=== PATIENT | male | born 1940 | race Caucasian/White ===

== ENCOUNTER 2017-05-02 13:15 | Inpatient (IN) | payer MEDICARE, OTHER ==
[~2017-05-02] VITALS: Ht 170.2 cm; Wt 101.4 kg
[2017-05-02] MEDS ORDERED: SOD CHLORIDE 0.9% 500 ML IV STA (13:29)
[2017-05-02 14:09] LABS: ABNORMAL IP MESSAGE 1; BASOPHILS % 0.1 % (0.0-2.0); EOSINOPHILS # 0.1 10^3/ul (0.0-0.5); EOSINOPHILS % 1.1 % (0.0-7.0); HEMATOCRIT 38.6 % (42.0-52.0); HEMOGLOBIN 13.7 g/dl (14.0-18.0); LYMPHOCYTES # 0.5 10^3/ul (0.8-2.9); MEAN CORPUSCULAR HEMOGLOBIN 31.5 pg (29.0-33.0); MEAN CORPUSCULAR HGB CONC 35.5 g/dl (32.0-37.0); MEAN CORPUSCULAR VOLUME 88.7 fl (82.0-101.0); MEAN PLATELET VOLUME 11.3 fl (7.4-10.4); MONOCYTE # 0.5 10^3/ul (0.3-0.9); MONOCYTES % 6.2 % (0.0-11.0); NEUTROPHIL # 7.1 10^3/ul (1.6-7.5); NEUTROPHILS % 86.4 % (39.0-77.0); PLATELET COUNT 134 10^3/UL (140-415); POSITIVE DIFF @See below; RED BLOOD COUNT 4.35 10^6/ul (4.70-6.10); RED CELL DISTRIBUTION WIDTH 12.9 % (11.5-14.5); WHITE BLOOD COUNT 8.2 10^3/ul (4.8-10.8)
[2017-05-02 14:13] LABS: ADD UMIC YES; UR ASCORBIC ACID NEGATIVE (NEGATIVE); UR BILIRUBIN (Dip) NEGATIVE (NEGATIVE); UR BLOOD (Dip) 1+ mg/dL (NEGATIVE); UR CLARITY CLEAR (CLEAR); UR COLOR STRAW (YELLOW); UR GLUCOSE (Dip) NEGATIVE (NEGATIVE); UR KETONES (Dip) NEGATIVE (NEGATIVE); UR LEUKOCYTE ESTERASE (Dip) NEGATIVE Leu/ul (NEGATIVE); UR NITRITE (Dip) NEGATIVE (NEGATIVE); UR RBC 1 /HPF (0-5); UR SPECIFIC GRAVITY (Dip) 1.009 (1.003-1.030); UR TOTAL PROTEIN (Dip) NEGATIVE (NEGATIVE); UR UROBILINOGEN (Dip) NEGATIVE (NEGATIVE)
[2017-05-02 14:25] LABS: CALCIUM 9.4 mg/dl (8.4-10.2); CREATININE 1.24 mg/dl (0.61-1.24); POTASSIUM 3.6 mmol/L (3.5-5.1)
--- NOTE | 2017-05-02 14:30 | RADRPT ---
PROCEDURE: Chest x-ray CLINICAL INDICATION: Chest pain TECHNIQUE: Chest single view COMPARISON: None FINDINGS: The heart is normal in size. The pulmonary vessels are normal in caliber. There are low lung volume s with bibasilar atelectasis. The costophrenic angles are sharp. The visualized bony thorax is unr emarkable. Healed left clavicle fracture is noted IMPRESSION: No acute cardiopulmonary disease. Low lung volumes with bibasilar atelectasis RPTAT: HH .Flo Cruz MD, Date Time Electronically viewed and signed by .Flo Cruz MD, on 05/02/2017 14:30 .W/
[2017-05-02] MEDS ORDERED: NEPA1.7D LEFT EYE (14:32)
[2017-05-02] MEDS ORDERED: DIFL5DRO LEFT EYE (14:33)
[2017-05-02] MEDS ORDERED: RANO500T2 PO (14:35)
[2017-05-02] MEDS ORDERED: LANT3I SC ×2 (14:35)
[2017-05-02 14:37] LABS: TROPONIN-I 0.02 ng/ml (0.00-0.12)
[2017-05-02] MEDS ORDERED: PREG50CA PO (14:37)
[2017-05-02] MEDS ORDERED: TRAV2.5D BOTH EYES (14:38)
[2017-05-02] MEDS ORDERED: METO-335 PO (14:45)
[2017-05-02] MEDS ORDERED: ESOM40CA PO (14:46)
[2017-05-02] MEDS ORDERED: NOVO3I SC (14:47)
[2017-05-02] MEDS ORDERED: LIDO700A10 TP (14:49)
[2017-05-02] MEDS ORDERED: OXYB10TA PO (14:50)
[2017-05-02] MEDS ORDERED: DORZ10DR22 BOTH EYES (14:51)
[2017-05-02] MEDS ORDERED: CLOP75TA27 PO (14:51)
[2017-05-02] MEDS ORDERED: LISI20TA11 PO (14:51)
[2017-05-02] MEDS ORDERED: DOCU100T PO (14:52)
[2017-05-02] MEDS ORDERED: FURO40TA4 PO (14:53)
[2017-05-02] MEDS ORDERED: PENT400T2 PO (14:53)
[2017-05-02] MEDS ORDERED: ISOS60TA PO (14:54)
[2017-05-02] MEDS ORDERED: ASPI-664 PO (14:54)
[2017-05-02] MEDS ORDERED: POTA10TA37 PO (14:55)
[2017-05-02] MEDS ORDERED: PANT40TA3 PO (14:55)
[2017-05-02] MEDS ORDERED: TAMS-14 PO (14:55)
[2017-05-02] MEDS ORDERED: ALBU18HF INHALATION (14:56)
[2017-05-02] MEDS ORDERED: ATOR20TA38 PO (14:56)
[2017-05-02] MEDS ORDERED: IODIXANOL LOCM 100 ML BTL ONE (16:10)
[2017-05-02] MEDS ORDERED: SOD CHLORIDE 0.9% 100 ML ONE (16:10)
[2017-05-02] MEDS ORDERED: IODIXANOL LOCM 50 ML BTL ONE (16:10)
--- NOTE | 2017-05-02 16:44 | RADRPT ---
PROCEDURE: CTA Chest and pulmonary angiogram. CLINICAL INDICATION: Chest pain and shortness of breath. TECHNIQUE: CT scan of the chest and CT pulmonary angiogram was performed on a multidetector high-r [employer]olution CT scanner. High-resolution thin slice coronal and sagittal imaging was obtained from the axial source images. 3-D volumetric rendered post processing was performed as well. The patient w as examined following the uncomplicated intravenous administration of 120 cc of Visipaque 320. The i mages were reviewed on a PACS workstation. The total exam CTDI equals 35.21, and 19.93 and the total exam DLP equals 724.27 mGy-cm. One or more of the following dose reduction techniques were used: Automated exposure control. Adjustment of the mA and/or kV according to patient size. Use of iterative reconstruction technique. COMPARISON: No prior studies are available for comparison. FINDINGS: CT chest: Small areas of peripheral consolidations in the posterior left lingular segment and left lung base l aterally with surrounding infiltrates are present. There is diffuse bronchial wall thickening with m ucous plugging in the lung bases left greater than right. There is azygos lobe variation. The mediastinum is unremarkable without evidence for mass or lymphadenopathy. The vascular structur es of the mediastinum are normal in course and caliber. The heart size is mildly enlarged without p ericardial thickening or effusion. Dense coronary artery calcifications/stents are present. The axil rosa, subpectoral, and supraclavicular regions are unremarkable. Imaging obtained through the upper abdomen is remarkable for mild splenomegaly. The adrenal glands are symmetrically normal. The surrounding chest wall is unremarkable. 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 The osseous structures are remarkable for degenerative spondylosis of the spine. CT pulmonary angiogram: No thrombus, clot, filling defect, or pulmonary web is identified. The pulmonary arteries are ivis l in caliber and morphology. No filling defect is present to suggest pulmonary embolism. There is no evidence for pulmonary arterial hypertension. IMPRESSION: 1. No evidence for pulmonary embolism. 2. Bronchopneumonia more evident in the left lower lobe. 3. Mild cardiomegaly. Dense coronary artery calcifications/stents. 4. Mild splenomegaly. RPTAT: BB .Marv Avila MD, MD Date Time Electronically viewed and signed by .Marv Avila MD, MD on 05/02/2017 16:44 .O/
[2017-05-02] MEDS ORDERED: VANCOMYCIN 1 GM (PMX) 250 ML IVPB STA (16:46)
[2017-05-02] MEDS ORDERED: CEFEPIME 2GM/50 ML (PMX) 50 ML IVPB STA (16:46)
[2017-05-02] MEDS ORDERED: ACETAMINOPHEN 500 MG TAB PO STA (18:07)
--- NOTE | 2017-05-02 18:11 | ERD ---
ER Documentation Chief Complaint Chief Complaint referred by PMD r/o PNA, CHF HPI This is a 76-year-old male presents to the emergency room for evaluation of chest pain, shortness of breath. This patient was seen by his primary care physician Dr. Johnston who referred the patient to the emergency room for evaluation and rule out of pneumonia. This patient does say he has a history of hypertension, high cholesterol, and stents placed in his heart. The patient came to the ER today for evaluation of his symptoms. He denies any fevers or chills and does state he has a cough. ROS All systems reviewed and are negative except as per history of present illness. Medications Home Meds Reported Medications Albuterol Sulfate* (Ventolin HFA*) 18 Gm Hfa.aer.ad, 2 PUFF INHALATION Q6H, #1 INHALER 05/02/17 Atorvastatin Calcium* (Atorvastatin Calcium*) 20 Mg Tablet, 20 MG PO QHS, #30 TAB 05/02/17 Tamsulosin Hcl* (Flomax*) 0.4 Mg Cap.er.24h, 0.4 MG PO DAILY, CAP 05/02/17 Pantoprazole* (Protonix*) 40 Mg Tablet.dr, 40 MG PO DAILY, TAB 05/02/17 Potassium Chloride* (K-Dur*) 10 Meq Tab.prt.sr, 10 MEQ PO DAILY, TAB 05/02/17 Isosorbide Mononitrate* (Isosorbide Mononitrate*) 60 Mg Tab.er.24h, 60 MG PO BID , TAB 05/02/17 Aspirin (Low Dose Aspirin) 81 Mg Tablet.dr, 81 MG PO DAILY, #30 TAB 05/02/17 Furosemide* (Furosemide*) 40 Mg Tablet, 40 MG PO DAILY, TAB 05/02/17 Pentoxifylline* (Pentoxifylline*) 400 Mg Tablet.sa, 400 MG PO BID, TAB 05/02/17 Docusate Sodium* (Dok*) 100 Mg Tablet, 200 MG PO BID, #120 CAP 05/02/17 Lisinopril* (Lisinopril*) 20 Mg Tablet, 20 MG PO DAILY, #30 TAB 05/02/17 Clopidogrel Bisulfate (Clopidogrel) 75 Mg Tablet, 75 MG PO DAILY, #30 TAB 05/02/17 Dorzolamide-Timolol* (Cosopt*) 2%-0.5% - 10 Ml Soln, 1 DROP BOTH EYES BID, BOTTLE 05/02/17 Oxybutynin Chloride (Oxybutynin Chloride ER) 10 Mg Tab.er.24, 10 MG PO QAM, TAB 05/02/17 Lidocaine (Lidoderm) 1 Each Adh..patch, 3 EACH TP Q12 APPLY 3 PATCHES TO AFFECTED AREAS DIRECTED AND LEAVE ON 12 HOURS THEN OFF FOR 12 HOURS 05/02/17 Insulin Aspart* (Novolog Insulin Pen*) 100 Unit/Ml Soln, 8 UNIT SC WITH MEALS, EA 05/02/17 Esomeprazole Mag Trihydrate (Nexium) 40 Mg Capsule.dr, 40 MG PO DAILY, #30 CAP 05/02/17 Metoprolol Succinate* (Toprol XL*) 25 Mg Tab.sr.24h, 12.5 MG PO BID, #30 TAB 05/02/17 Travoprost* (Travatan Z*) 2.5 Ml Drops, 1 DROP BOTH EYES HS, #1 BOTTLE 05/02/17 Pregabalin* (Lyrica*) 50 Mg Capsule, 50 MG PO TID, CAP 05/02/17 Ranolazine* (Ranexa*) 500 Mg Tab.sr.12h, 500 MG PO Q12, TAB 05/02/17 Insulin Glargine* (Lantus*) 100 Unit/Ml Soln, 20 UNIT SC QPM, #1 VIAL 05/02/17 Insulin Glargine* (Lantus*) 100 Unit/Ml Soln, 40 UNIT SC QAM, #1 VIAL 05/02/17 Difluprednate (Durezol) 5 Ml Drops, 1 DRP LEFT EYE BID, BOTTLE 05/02/17 Nepafenac (ILEVRO) 1.7 Ml Drops.susp, 1.7 ML LEFT EYE QAM 05/02/17 Allergies Allergies: Coded Allergies: No Known Allergy (Unverified , 05/02/17) PMhx/Soc History of Surgery: Yes (cardiac stents x3) Hx Cardiac Disorders: Yes (HTN, cholesterol, stents) Hx Psychiatric Problems: No Hx Miscellaneous Medical Probl: No Hx Alcohol Use: No Hx Substance Use: No Hx Tobacco Use: No Smoking Status: Never smoker Physical Exam Vitals Vital Signs Date Time Temp Pulse Resp B/P Pulse Ox O2 Delivery O2 Flow Rate FiO2 05/02/17 15:10 94 22 140/53 95 Room Air 05/02/17 14:47 98.5 96 21 146/80 97 Physical Exam INITIAL VITAL SIGNS: Reviewed by me GENERAL: The patient is well developed and appropriate for usual state of health in no apparent distress HEENT: Pupils equal, round, and reactive to light. EOMI. There is no scleral icterus. NECK: C-spine is soft and supple, there is no meningismus. There is no cervical lymphadenopathy. LUNGS: Clear to auscultation bilaterally. There are no rales, wheezes or rhonchi. HEART: Regular rate and rhythm, no murmurs, clicks, rubs or gallops. ABDOMEN: Soft, non-tender, non-distended. There are bowel sounds in all four quadrants. No rebound or guarding. EXTREMITIES: There is no peripheral cyanosis or edema. No focal swelling or erythema. NEUROLOGICAL: The patient moves all four extremities with 5/5 strength. Cranial nerves II - XII are intact. Normal gait. Alert and oriented SKIN: There is no apparent rash or petechiae. HEME/LYMPHATIC: There is no evidence of excessive bruising or lymphedema. PSYCHIATRIC: The patient does not appear anxious or depressed. Result Diagram: 05/02/17 1335 05/02/17 1335 Results 24 hrs Laboratory Tests Test 05/02/17 13:35 05/02/17 13:50 05/02/17 17:10 White Blood Count 8.210^3/ul Red Blood Count 4.3510^6/ul Hemoglobin 13.7g/dl Hematocrit 38.6% Mean Corpuscular Volume 88.7fl Mean Corpuscular Hemoglobin 31.5pg Mean Corpuscular Hemoglobin Concent 35.5g/dl Red Cell Distribution Width 12.9% Platelet Count 83917^3/UL Mean Platelet Volume 11.3fl Neutrophils % 86.4% Lymphocytes % 6.0% Monocytes % 6.2% Eosinophils % 1.1% Basophils % 0.1% Nucleated Red Blood Cells % 0.0/100WBC Neutrophils # 7.110^3/ul Lymphocytes # 0.510^3/ul Monocytes # 0.510^3/ul Eosinophils # 0.110^3/ul Basophils # 0.010^3/ul Nucleated Red Blood Cells # 0.010^3/ul Sodium Level 139mmol/L Potassium Level 3.6mmol/L Chloride Level 99mmol/L Carbon Dioxide Level 26mmol/L Anion Gap 18 Blood Urea Nitrogen 15mg/dl Creatinine 1.24mg/dl Glucose Level 201mg/dl Calcium Level 9.4mg/dl Troponin I 0.020ng/ml B-Type Natriuretic Peptide 297PG/ML Urine Color STRAW Urine Clarity CLEAR Urine pH 5.0 Urine Specific [place] 1.009 Urine Ketones NEGATIVEmg/dL Urine Nitrite NEGATIVEmg/dL Urine Bilirubin NEGATIVEmg/dL Urine Urobilinogen NEGATIVEmg/dL Urine Leukocyte Esterase NEGATIVELeu/ul Urine Microscopic RBC 1/HPF Urine Microscopic WBC 0/HPF Urine Hemoglobin 1+mg/dL Urine Glucose NEGATIVEmg/dL Urine Total Protein NEGATIVEmg/dl Lactic Acid Level 1.6mmol/L Current Medications Medications (Trade) Dose Ordered Sig/Kd Route PRN Reason Start Time Stop Time Status Last Admin Dose Admin Sodium Chloride (NS) 500 ml @ 500 mls/hr Q1H STAT IV 05/02/17 13:29 05/02/17 14:28 DC 05/02/17 14:00 IV Flush 10 ml 10 ml STK-MED ONCE .ROUTE 05/02/17 16:09 05/02/17 16:10 DC 05/02/17 16:09 Sodium Chloride (NS) 100 ml @ ud STK-MED ONCE .ROUTE 05/02/17 16:10 05/02/17 16:11 DC 05/02/17 16:10 Iodixanol (Visipaque Locm) 100 ml STK-MED ONCE .ROUTE 05/02/17 16:10 05/02/17 16:11 DC 05/02/17 16:10 Iodixanol 50 ml 50 ml STK-MED ONCE .ROUTE 05/02/17 16:10 05/02/17 16:11 DC 05/02/17 16:10 Vancomycin HCl 250 ml @ 125 mls/hr ONCE STAT IVPB 05/02/17 16:46 05/02/17 18:45 Cefepime HCl (Maxipime 2gm/50 ml (Pmx)) 50 ml @ 100 mls/hr ONCE STAT IVPB 05/02/17 16:46 05/02/17 17:15 DC 05/02/17 17:52 Acetaminophen (Tylenol Tab) 1,000 mg ONCE STAT PO 05/02/17 18:07 05/02/17 18:08 DC Procedures/MDM Chest X-ray 1V Interpreted by me: Soft Tissue: No acute abnormalities Bones: No acute abnormalities Mediastinum/Cardiac Silhouette/Lungs: [No acute abnormalities] EKG: Rate/Rhythm: Biventricular block QRS, ST, T-waves: [No changes consistent w/ acute ischemia] Impression: Biventricular block This 76-year-old male presents to the ER for evaluation of multiple complaints including chest pain and mild shortness of breath. When I evaluated this patient he was tachycardic. The patient does have a history of stents placed. I did obtain lab work on this patient. His first troponin is negative. Chest x -ray is clear, CT of the chest does not reveal any pulmonary embolus. We were trying to get a hold of this patient's insurance for admission to determine which physician will be admitting this patient. After 90 minutes of waiting he did not hear back from the insurance company and I spoken to her panel physician , Dr. arias who accepts the patient at this time. Patient will be placed on the telemetry floor. Departure Diagnosis: Primary Impression: Chest pain Additional Impression: Shortness of breath Condition: Stable PEARLJOSH LOVEJEN DOTY May 02, 2017 18:11
[2017-05-02] MEDS ORDERED: ONDANSETRON 4 MG INJ IV PRN (18:30)
[2017-05-02] MEDS ORDERED: ACETAMINOPHEN 325 MG TAB PO PRN ×2 (18:30→19:00)
[2017-05-02 18:33] VITALS: TEMP 101
[2017-05-02] MEDS ORDERED: MAGNESIUM HYDROXIDE 30ML CUP PO PRN (19:00)
[2017-05-02] MEDS ORDERED: BISACODYL (EC) 5 MG TAB PO PRN (19:00)
[2017-05-02] MEDS ORDERED: NACL 0.9% 3 ML SYG IV SCH (19:00)
[2017-05-02] MEDS ORDERED: AZITHROMYCIN 250 MG TAB PO SCH (19:00)
[2017-05-02] MEDS ORDERED: ALBUTEROL 18 GM INHALER INH PRN (19:00)
[2017-05-02] MEDS ORDERED: HYDROCODONE/APAP (5/325) TAB PO PRN (19:00)
[2017-05-02] MEDS ORDERED: DOCUSATE SODIUM 100 MG CAP PO PRN (19:00)
--- NOTE | 2017-05-02 19:07 | HP ---
Date/Time of Note Date/Time of Note DATE: 05/02/17 TIME: 19:02 Assessment/Plan VTE Prophylaxis VTE Prophylaxis Intervention: SCD's Lines/Catheters IV Catheter Type (from Nrsg): Peripheral IV Assessment/Plan Assessment/Plan 76 yo M with pmhx CAD sp stent, DM2, HTN, HL, chronic pain, PAD presents with SOB in setting of LLL infiltrate, concerning for CAP. Given cardiac hx, ER wanted to r/o ACS as well. PLAN r/o ACS with serial trops cont home BP meds, statin, antiplatelet therapy CAP treatment with azithro/rocephin nebs PRN wheezing if wheezing still present in AM, consider steroid burst cont home meds-->for DM2 check a1c as well HPI/ROS Admit Date/Time Admit Date/Time Hx of Present Illness cc sob X 1 DAY hpi: 76 yo M with pmhx CAD sp stenting, DM2, asthma, PVD, chronic pain presents with 1 day SOB, cough, and fevers. Pt seen by his PCP who sent him to the ER to eval for pna. No leg swelling. No rashes. +sore throat PMhx as above Soc Hx: lives in the community ROS: 10p ROS neg except as per HPI PMH/Family/Social Social History Smoking Status: Never smoker Exam/Review of Systems Vital Signs Vitals Vital Signs Date Time Temp Pulse Resp B/P Pulse Ox O2 Delivery O2 Flow Rate FiO2 05/02/17 18:33 101.0 113 16 158/74 95 Room Air Exam Exam nad, laying in bed EOMI MMM +wheezing in all lung chamberlain no mrg abd obese no rashes no edema moves exts freely CTA with LLL infiltrate on personal review. WBCs nl Labs Result Diagram: 05/02/17 1335 05/02/17 1335 Medications Medications Current Medications Albuterol (Proventil (O.r. Use Only)) 2 puff Q6H PRN INH SHORTNESS OF BREATH; Start 05/02/17 at 19:00; Status UNV Aspirin (Halfprin) 81 mg DAILY PO ; Start 05/03/17 at 09:00; Status UNV Atorvastatin Calcium (Lipitor) 20 mg QHS PO ; Start 05/02/17 at 21:00; Status UNV Clopidogrel Bisulfate (plaVIX) 75 mg DAILY PO ; Start 05/03/17 at 09:00; Status UNV Docusate Sodium (Colace) 200 mg BID PO ; Start 05/02/17 at 21:00; Status UNV Dorzolamide/ Timolol (Cosopt) 1 drop BID BOTH EYES ; Start 05/02/17 at 21:00; Status UNV Furosemide (Lasix) 40 mg DAILY PO ; Start 05/03/17 at 09:00; Status UNV Insulin Glargine (Lantus) 20 unit QPM SC ; Start 05/02/17 at 21:00; Status UNV Insulin Glargine (Lantus) 40 unit QAM SC ; Start 05/03/17 at 09:00; Status UNV Isosorbide Mononitrate (Imdur) 60 mg BID PO ; Start 05/02/17 at 21:00; Status UNV Lidocaine (Lidoderm) 1 patch Q12 TD ; Start 05/02/17 at 21:00; Status UNV Lisinopril (Zestril) 20 mg DAILY PO ; Start 05/03/17 at 09:00; Status UNV Metoprolol Succinate (Toprol Xl) 12.5 mg BID PO ; Start 05/02/17 at 21:00; Status UNV Pantoprazole (Protonix Tab) 40 mg DAILY PO ; Start 05/03/17 at 09:00; Status UNV Pentoxifylline (Trental) 400 mg BID PO ; Start 05/02/17 at 21:00; Status UNV Potassium Chloride (Klor-Con 10) 10 meq DAILY PO ; Start 05/03/17 at 09:00; Status UNV Pregabalin (Lyrica) 50 mg TID PO ; Start 05/02/17 at 21:00; Status UNV Ranolazine (Ranexa) 500 mg Q12 PO ; Start 05/02/17 at 21:00; Status UNV Tamsulosin HCl (Flomax) 0.4 mg DAILY PO ; Start 05/03/17 at 09:00; Status UNV Travoprost (Travatan) 1 drop HS BOTH EYES ; Start 05/02/17 at 21:00; Status UNV Miscellaneous Information 1 drp BID LEFT EYE ; Start 05/02/17 at 21:00; Status UNV Miscellaneous Information 40 mg DAILY PO ; Start 05/03/17 at 09:00; Status UNV Miscellaneous Information 1.7 ml QAM LEFT EYE ; Start 05/03/17 at 09:00; Status UNV Miscellaneous Information 10 mg QAM PO ; Start 05/03/17 at 09:00; Status UNV Azithromycin 500 mg 500 mg ONCE PO ; Start 05/02/17 at 19:00; Status UNV Ceftazidime (Fortaz 1gm/50 ml (Pmx)) 50 ml @ 100 mls/hr DAILY IVPB ; Start at 09:00; Status UNV Azithromycin (Zithromax) 250 mg DAILY PO ; Start 05/03/17 at 09:00; Stop 05/09 at 08:59; Status UNV Acetaminophen (Tylenol Tab) 650 mg Q6H PRN PO PAIN LEVEL 1-3 OR FEVER; Start 05/02/17 at 19:00; Status UNV Acetaminophen/ Hydrocodone Bitart ([place] (5/325)) 1 tab Q6H PRN PO PAIN LEVEL 4 -6; Start 05/02/17 at 19:00; Status UNV Docusate Sodium (Colace) 100 mg Q12H PRN PO CONSTIPATION; Start 05/02/17 at 19 :00; Status UNV Magnesium Hydroxide (Milk Of Mag) 30 ml DAILY PRN PO CONSTIPATION; Start 05/02 at 19:00; Status UNV Bisacodyl (Dulcolax) 5 mg DAILY PRN PO CONSTIPATION; Start 05/02/17 at 19:00; Status UNV Enoxaparin Sodium (Lovenox) 40 mg DAILY SC ; Start 05/03/17 at 09:00; Status UNV TACO IQBAL MD May 02, 2017 19:07
[2017-05-02] MEDS ORDERED: CEFTRIAXONE 1 GM/50 ML (PMX) 50 ML IVPB SCH (19:30)
[2017-05-02] MEDS ORDERED: ALBUTEROL/IPRATROPIUM (NEB) 3 ML AMP HHN PRN (19:30)
[2017-05-02] MEDS ORDERED: GLUCOSE GEL 15 GRAM TUBE PO PRN ×2 (20:00)
[2017-05-02] MEDS ORDERED: GLUCOSE GEL 15 GRAM TUBE BUCCAL PRN (20:00)
[2017-05-02] MEDS ORDERED: DEXTROSE 50% 50 ML SYRINGE IV PRN ×2 (20:00)
[2017-05-02] MEDS ORDERED: GLUCAGON 1 MG INJ IM PRN (20:00)
[2017-05-02 20:18] VITALS: PULSE 90
[2017-05-02 20:26] VITALS: BP 158/75; RESP 18
[2017-05-02 21:00] VITALS: Ht 170.2 cm; Wt 101.4 kg
[2017-05-02] MEDS ORDERED: ATORVASTATIN 20 MG TAB PO SCH (21:00)
[2017-05-02] MEDS ORDERED: INSULIN GLARGINE [LANtus] 3 ML PEN SC SCH (21:00)
[2017-05-02] MEDS ORDERED: DIFLUPREDNATE XX SCH (21:00)
[2017-05-02] MEDS ORDERED: TRAVOPROST 0.004% 2.5 ML OPH BOTH EYES SCH (21:00)
[2017-05-02] MEDS ORDERED: LIDOCAINE 5% PATCH TD SCH (21:00)
[2017-05-02 21:22] LABS: TROPONIN-I 0.067 ng/ml (0.00-0.12)
[2017-05-02] MEDS: ISOSORBIDE MONONITRATE(SR)60 MG TAB PO SCH (22:00)
[2017-05-02] MEDS: DOCUSATE SODIUM 100 MG CAP PO SCH (22:00)
[2017-05-02 22:01] LABS: CK-MB 1.28 ng/ml (0.0-2.4)
[2017-05-02] MEDS: METOPROLOL (XL) 25 MG TAB PO SCH (22:01)
[2017-05-02] MEDS: INSULIN ASPART [NOVOLOG] 3 ML PEN SC SCH (22:03)
[2017-05-02] MEDS ORDERED: LATANOPROST 0.005% 2.5 ML OPH BOTH EYES SCH (23:08)
[2017-05-02] MEDS: DORZOLAMIDE/TIMOLOL 10 ML OPH BOTH EYES SCH (23:39)
[2017-05-02] MEDS: PENTOXIFYLLINE (SR) 400 MG TAB PO SCH (23:39)
[2017-05-02] MEDS: RANOLAZINE (SR) 500 MG TAB PO SCH (23:39)
[2017-05-03] VITALS (8 sets, daily range): BP systolic 127–152; BP diastolic 60–70; PULSE 62–95; RESP 17–20
[2017-05-03] MEDS: PREGABALIN 50 MG CAP PO SCH ×3 (00:12→13:00)
[2017-05-03] MEDS ORDERED: ACCU-CHEK XX SCH (02:00)
[2017-05-03 02:06] LABS: TROPONIN-I 0.069 ng/ml (0.00-0.12)
[2017-05-03 02:09] LABS: CK-MB 2.04 ng/ml (0.0-2.4)
[2017-05-03] MEDS ORDERED: PANTOPRAZOLE (EC) 40 MG TAB PO SCH (06:00)
[2017-05-03] MEDS: INSULIN ASPART [NOVOLOG] 3 ML PEN SC SCH ×4 (08:00→12:00)
[2017-05-03 08:19] LABS: BASOPHILS % 0.2 % (0.0-2.0); EOSINOPHILS # 0.1 10^3/ul (0.0-0.5); EOSINOPHILS % 2.1 % (0.0-7.0); HEMATOCRIT 35.4 % (42.0-52.0); HEMOGLOBIN 12.2 g/dl (14.0-18.0); LYMPHOCYTES # 0.7 10^3/ul (0.8-2.9); MEAN CORPUSCULAR HGB CONC 34.5 g/dl (32.0-37.0); MEAN CORPUSCULAR VOLUME 89.8 fl (82.0-101.0); MEAN PLATELET VOLUME 11.4 fl (7.4-10.4); MONOCYTE # 0.7 10^3/ul (0.3-0.9); NEUTROPHIL # 3.6 10^3/ul (1.6-7.5); NEUTROPHILS % 69.5 % (39.0-77.0); PLATELET COUNT 125 10^3/UL (140-415); RED BLOOD COUNT 3.94 10^6/ul (4.70-6.10); RED CELL DISTRIBUTION WIDTH 12.9 % (11.5-14.5); WHITE BLOOD COUNT 5.2 10^3/ul (4.8-10.8)
[2017-05-03] MEDS: RANOLAZINE (SR) 500 MG TAB PO SCH (08:27)
[2017-05-03] MEDS: ISOSORBIDE MONONITRATE(SR)60 MG TAB PO SCH (08:28)
[2017-05-03] MEDS: PENTOXIFYLLINE (SR) 400 MG TAB PO SCH (08:28)
[2017-05-03] MEDS: METOPROLOL (XL) 25 MG TAB PO SCH (08:29)
[2017-05-03] MEDS: DORZOLAMIDE/TIMOLOL 10 ML OPH BOTH EYES SCH (08:30)
[2017-05-03 08:34] LABS: CHOL/HDL RATIO 4.5 RATIO; CREATININE 1.25 mg/dl (0.61-1.24); POTASSIUM 4.3 mmol/L (3.5-5.1)
[2017-05-03] MEDS: DOCUSATE SODIUM 100 MG CAP PO SCH (08:40)
[2017-05-03] MEDS ORDERED: ENOXAPARIN 40 MG/0.4 ML SYG SC SCH (09:00)
[2017-05-03] MEDS ORDERED: OXYBUTYNIN (XL) 5 MG TAB PO SCH (09:00)
[2017-05-03] MEDS ORDERED: FUROSEMIDE 40 MG TAB PO SCH (09:00)
[2017-05-03] MEDS ORDERED: CLOPIDOGREL 75 MG TAB PO SCH (09:00)
[2017-05-03] MEDS ORDERED: AZITHROMYCIN 250 MG TAB PO SCH (09:00)
[2017-05-03] MEDS ORDERED: POTASSIUM CHLORIDE (SR) 10 MEQ TAB PO SCH (09:00)
[2017-05-03] MEDS ORDERED: NEPAFENAC XX SCH (09:00)
[2017-05-03] MEDS ORDERED: ASPIRIN (EC) 81 MG TAB PO SCH (09:00)
[2017-05-03] MEDS ORDERED: INSULIN GLARGINE [LANtus] 3 ML PEN SC SCH (09:00)
[2017-05-03] MEDS ORDERED: LISINOPRIL 20 MG TAB PO SCH (09:00)
[2017-05-03] MEDS ORDERED: NON-FORMULARY/PATIENT OWN MED (Esomeprazole Mag Trihydrate (Nexium) 40 MG) PO SCH (09:00)
[2017-05-03] MEDS ORDERED: CEFTAZIDIME 1GM/50 ML (PMX) 50 ML IVPB SCH (09:00)
[2017-05-03] MEDS ORDERED: LEVO750T8 PO (12:45)
--- NOTE | 2017-05-03 12:46 | PDOCDIS ---
Discharge Instructions CONDITION Patient Condition: Stable HOME CARE INSTRUCTIONS: Special Diet: carb controlled FOLLOW UP/APPOINTMENTS Follow-up Plan Follow up with your regular doctor within 7 days TACO IQBAL MD May 03, 2017 12:46
--- NOTE | 2017-05-03 12:49 | DS ---
Date/Time of Note Date/Time of Note DATE: 05/03/17 TIME: 12:46 Discharge Summary Admission/Discharge Info Admit Date/Time May 02, 2017 at 18:09 Discharge Date/Time Discharge Diagnosis community acquired pneumonia Procedures . CTA chest IMPRESSION: 1. No evidence for pulmonary embolism. 2. Bronchopneumonia more evident in the left lower lobe. 3. Mild cardiomegaly. Dense coronary artery calcifications/stents. 4. Mild splenomegaly. troponins neg x 3 Hx of Present Illness cc sob X 1 DAY hpi: 76 yo M with pmhx CAD sp stenting, DM2, asthma, PVD, chronic pain presents with 1 day SOB, cough, and fevers. Pt seen by his PCP who sent him to the ER to eval for pna. No leg swelling. No rashes. +sore throat PMhx as above Soc Hx: lives in the community ROS: 10p ROS neg except as per HPI Hospital Course Given lung imaging with evidence of LLL infiltrate concern for PNA/CAP. Pt started on antibiotics and felt better by the next morning and requested discharge. Pt to complete 6 more days of antimicrobials for his pneumonia. No changes to home meds besides short course of abx. Serial troponins negative. Home Meds Reported Medications Albuterol Sulfate* (Ventolin HFA*) 18 Gm Hfa.aer.ad, 2 PUFF INHALATION Q6H, #1 INHALER 05/02/17 Atorvastatin Calcium* (Atorvastatin Calcium*) 20 Mg Tablet, 20 MG PO QHS, #30 TAB 05/02/17 Tamsulosin Hcl* (Flomax*) 0.4 Mg Cap.er.24h, 0.4 MG PO DAILY, CAP 05/02/17 Pantoprazole* (Protonix*) 40 Mg Tablet.dr, 40 MG PO DAILY, TAB 05/02/17 Potassium Chloride* (K-Dur*) 10 Meq Tab.prt.sr, 10 MEQ PO DAILY, TAB 05/02/17 Isosorbide Mononitrate* (Isosorbide Mononitrate*) 60 Mg Tab.er.24h, 60 MG PO BID , TAB 05/02/17 Aspirin (Low Dose Aspirin) 81 Mg Tablet.dr, 81 MG PO DAILY, #30 TAB 05/02/17 Furosemide* (Furosemide*) 40 Mg Tablet, 40 MG PO DAILY, TAB 05/02/17 Pentoxifylline* (Pentoxifylline*) 400 Mg Tablet.sa, 400 MG PO BID, TAB 05/02/17 Docusate Sodium* (Dok*) 100 Mg Tablet, 200 MG PO BID, #120 CAP 05/02/17 Lisinopril* (Lisinopril*) 20 Mg Tablet, 20 MG PO DAILY, #30 TAB 05/02/17 Clopidogrel Bisulfate (Clopidogrel) 75 Mg Tablet, 75 MG PO DAILY, #30 TAB 05/02/17 Dorzolamide-Timolol* (Cosopt*) 2%-0.5% - 10 Ml Soln, 1 DROP BOTH EYES BID, BOTTLE 05/02/17 Oxybutynin Chloride (Oxybutynin Chloride ER) 10 Mg Tab.er.24, 10 MG PO QAM, TAB 05/02/17 Lidocaine (Lidoderm) 1 Each Adh..patch, 3 EACH TP Q12 APPLY 3 PATCHES TO AFFECTED AREAS DIRECTED AND LEAVE ON 12 HOURS THEN OFF FOR 12 HOURS 05/02/17 Insulin Aspart* (Novolog Insulin Pen*) 100 Unit/Ml Soln, 8 UNIT SC WITH MEALS, EA 05/02/17 Esomeprazole Mag Trihydrate (Nexium) 40 Mg Capsule.dr, 40 MG PO DAILY, #30 CAP 05/02/17 Metoprolol Succinate* (Toprol XL*) 25 Mg Tab.sr.24h, 12.5 MG PO BID, #30 TAB 05/02/17 Travoprost* (Travatan Z*) 2.5 Ml Drops, 1 DROP BOTH EYES HS, #1 BOTTLE 05/02/17 Pregabalin* (Lyrica*) 50 Mg Capsule, 50 MG PO TID, CAP 05/02/17 Ranolazine* (Ranexa*) 500 Mg Tab.sr.12h, 500 MG PO Q12, TAB 05/02/17 Insulin Glargine* (Lantus*) 100 Unit/Ml Soln, 20 UNIT SC QPM, #1 VIAL 05/02/17 Insulin Glargine* (Lantus*) 100 Unit/Ml Soln, 40 UNIT SC QAM, #1 VIAL 05/02/17 Difluprednate (Durezol) 5 Ml Drops, 1 DRP LEFT EYE BID, BOTTLE 05/02/17 Nepafenac (ILEVRO) 1.7 Ml Drops.susp, 1.7 ML LEFT EYE QAM 05/02/17 Follow-up Plan Follow up with your regular doctor within 7 days Primary Care Provider Bobby Fitzgerald MD Time spent on discharge: > 30 minutes Pending Labs Laboratory Tests Test 05/02/17 13:35 05/02/17 13:50 05/02/17 17:10 05/02/17 20:24 White Blood Count 8.210^3/ul (4.8-10.8) Red Blood Count 4.3510^6/ul (4.70-6.10) Hemoglobin 13.7g/dl (14.0-18.0) Hematocrit 38.6% (42.0-52.0) Mean Corpuscular Volume 88.7fl (82.0-101.0) Mean Corpuscular Hemoglobin 31.5pg (29.0-33.0) Mean Corpuscular Hemoglobin Concent 35.5g/dl (32.0-37.0) Red Cell Distribution Width 12.9% (11.5-14.5) Platelet Count 14298^3/UL (140-415) Mean Platelet Volume 11.3fl (7.4-10.4) Neutrophils % 86.4% (39.0-77.0) Lymphocytes % 6.0% (15.0-51.0) Monocytes % 6.2% (0.0-11.0) Eosinophils % 1.1% (0.0-7.0) Basophils % 0.1% (0.0-2.0) Nucleated Red Blood Cells % 0.0/100WBC (0.0-0.0) Neutrophils # 7.110^3/ul (1.6-7.5) Lymphocytes # 0.510^3/ul (0.8-2.9) Monocytes # 0.510^3/ul (0.3-0.9) Eosinophils # 0.110^3/ul (0.0-0.5) Basophils # 0.010^3/ul (0.0-0.1) Nucleated Red Blood Cells # 0.010^3/ul (0.0-0.0) Sodium Level 139mmol/L (135-144) Potassium Level 3.6mmol/L (3.5-5.1) Chloride Level 99mmol/L (97-110) Carbon Dioxide Level 26mmol/L (21-31) Anion Gap 18 (8-16) Blood Urea Nitrogen 15mg/dl (7-20) Creatinine 1.24mg/dl (0.61-1.24) Glucose Level 201mg/dl (70-220) Calcium Level 9.4mg/dl (8.4-10.2) Troponin I 0.020ng/ml (0.00-0.12) 0.067ng/ml (0.00-0.12) B-Type Natriuretic Peptide 297PG/ML (0-450) Urine Color STRAW (YELLOW) Urine Clarity CLEAR (CLEAR) Urine pH 5.0 (5.0-9.0) Urine Specific [place] 1.009 (1.003-1.030) Urine Ketones NEGATIVEmg/dL (NEGATIVE) Urine Nitrite NEGATIVEmg/dL (NEGATIVE) Urine Bilirubin NEGATIVEmg/dL (NEGATIVE) Urine Urobilinogen NEGATIVEmg/dL (NEGATIVE) Urine Leukocyte Esterase NEGATIVELeu/ul (NEGATIVE) Urine Microscopic RBC 1/HPF (0-5) Urine Microscopic WBC 0/HPF (0-5) Urine Hemoglobin 1+mg/dL (NEGATIVE) Urine Glucose NEGATIVEmg/dL (NEGATIVE) Urine Total Protein NEGATIVEmg/dl (NEGATIVE) Lactic Acid Level 1.6mmol/L (0.5-2.0) 1.3mmol/L (0.5-2.0) Creatine Kinase 163IU/L (23-200) Creatine Kinase Index 0.8 Creatinine Kinase MB (Mass) 1.28ng/ml (0.0-2.4) Test 05/02/17 21:28 05/02/17 22:37 05/03/17 01:05 05/03/17 02:11 Bedside Glucose 188mg/dL (70-220) 220mg/dL (70-220) Lactic Acid Level 1.6mmol/L (0.5-2.0) Creatine Kinase 227IU/L (23-200) Creatine Kinase Index 0.9 Creatinine Kinase MB (Mass) 2.04ng/ml (0.0-2.4) Troponin I 0.069ng/ml (0.00-0.12) Test 05/03/17 07:31 05/03/17 08:01 05/03/17 12:15 White Blood Count 5.210^3/ul (4.8-10.8) Red Blood Count 3.9410^6/ul (4.70-6.10) Hemoglobin 12.2g/dl (14.0-18.0) Hematocrit 35.4% (42.0-52.0) Mean Corpuscular Volume 89.8fl (82.0-101.0) Mean Corpuscular Hemoglobin 31.0pg (29.0-33.0) Mean Corpuscular Hemoglobin Concent 34.5g/dl (32.0-37.0) Red Cell Distribution Width 12.9% (11.5-14.5) Platelet Count 90414^3/UL (140-415) Mean Platelet Volume 11.4fl (7.4-10.4) Neutrophils % 69.5% (39.0-77.0) Lymphocytes % 14.0% (15.0-51.0) Monocytes % 14.0% (0.0-11.0) Eosinophils % 2.1% (0.0-7.0) Basophils % 0.2% (0.0-2.0) Nucleated Red Blood Cells % 0.0/100WBC (0.0-0.0) Neutrophils # 3.610^3/ul (1.6-7.5) Lymphocytes # 0.710^3/ul (0.8-2.9) Monocytes # 0.710^3/ul (0.3-0.9) Eosinophils # 0.110^3/ul (0.0-0.5) Basophils # 0.010^3/ul (0.0-0.1) Nucleated Red Blood Cells # 0.010^3/ul (0.0-0.0) Sodium Level 140mmol/L (135-144) Potassium Level 4.3mmol/L (3.5-5.1) Chloride Level 103mmol/L (97-110) Carbon Dioxide Level 28mmol/L (21-31) Anion Gap 13 (8-16) Blood Urea Nitrogen 17mg/dl (7-20) Creatinine 1.25mg/dl (0.61-1.24) Glucose Level 184mg/dl (70-220) Hemoglobin A1c 6.8% (0-5.9) Calcium Level 9.0mg/dl (8.4-10.2) Triglycerides Level 126mg/dl (0-149) Cholesterol Level 147mg/dl (100-200) LDL Cholesterol, Calculated 90mg/dl HDL Cholesterol 32mg/dl (31-75) Cholesterol/HDL Ratio 4.5RATIO Bedside Glucose 168mg/dL (70-220) 139mg/dL (70-220) Microbiology Date/Time Source Procedure Growth Status 05/02/17 22:30 Sputum Gram Stain Pending Resulted 05/02/17 22:30 Respiratory Culture - Preliminary Normal Respiratory Bisi Resulted 05/02/17 20:20 Nasopharyngeal Influenza Types A,B Direct EIA - Final Complete Copies To: CC: BOBBY FITZGERALD MD, ELLEN MD May 03, 2017 12:49
[2017-05-03] MEDS ORDERED: TAMSULOSIN (SR) 0.4 MG CAP PO SCH (21:00)
== END 2017-05-03 15:14 | disposition home or self-care (01) | DRG 195 ==
LOC: E/R 13:15 → MS4 18:09
PROVIDERS: ADMIT Internal Medicine; ATTEND Internal Medicine
DX: J18.9 Pneumonia, unspecified organism (principal); E11.51 Type 2 diabetes mellitus with diabetic peripheral angiopathy without gangrene; I10 Essential (primary) hypertension; Y95 Nosocomial condition; E78.5 Hyperlipidemia, unspecified; G89.29 Other chronic pain; I73.9 Peripheral vascular disease, unspecified; I25.10 Atherosclerotic heart disease of native coronary artery without angina pectoris; J45.909 Unspecified asthma, uncomplicated; Z95.5 Presence of coronary angioplasty implant and graft; Z79.4 Long term (current) use of insulin
CPT/HCPCS: 36415; 71010; 71275; 80048; 80061; 81001; 82550; 82553; 82962; 83036; 83605; 83880; 84484; 85025; 87040; 87070; 87275; 87276; 87279; 87280; 87400; 93005; 96374; 96375; J0692; J0696; J1650; J1815; J3370; J7040; Q9967